=== PATIENT | male | born 1960 | race Caucasian/White ===

== ENCOUNTER 2020-12-31 18:52 | Emergency (ER) | payer OTHER ==
[2020-12-31 20:42] LABS: HEMOGLOBIN 14.9 gm/dl (14.0-17.5); RED BLOOD COUNT 4.96 M/UL (4.20-5.50); WHITE BLOOD COUNT 9.5 K/UL (4.5-11.0)
[2020-12-31 21:10] LABS: BUN/CREATININE RATIO 11 (0-10)
== END 2020-12-31 22:40 | disposition home or self-care (01) ==
LOC: ER1 18:52
PROVIDERS: Preventive Medicine Occupational Medicine
DX: F13.10 Sedative, hypnotic or anxiolytic abuse, uncomplicated (principal); R91.1 Solitary pulmonary nodule; E11.9 Type 2 diabetes mellitus without complications; I25.10 Atherosclerotic heart disease of native coronary artery without angina pectoris
CPT/HCPCS: 36600; 70450; 71045; 80053; 80307; 81001; 82009; 82550; 82553; 82803; 83690; 83874; 84484; 85025; 85652; 86140; 87086; 93005; 99284; G0480

== ENCOUNTER 2021-01-13 09:02 | Emergency (ER) | payer OTHER ==
[~2021-01-13] VITALS: Ht 175.3 cm; Wt 69.9 kg
[2021-01-13 10:13] LABS: HEMOGLOBIN 15.5 gm/dl (14.0-17.5); RED BLOOD COUNT 5.15 M/UL (4.20-5.50); WHITE BLOOD COUNT 9.6 K/UL (4.5-11.0)
[2021-01-13 12:18] LABS: BUN/CREATININE RATIO 10 (0-10)
[2021-01-13] MEDS ORDERED: VISTARIL50 MG PO (14:36)
[2021-01-13] MEDS ORDERED: UNISOM SLEEP AI25 MG PO (14:38)
[2021-01-13] MEDS ORDERED: IBU800 MG PO (14:39)
[2021-01-13] MEDS ORDERED: LEVETIRACETAM500 MG PO (14:39)
[2021-01-13] MEDS ORDERED: TRAMADOL HCL50 MG PO (14:40)
[2021-01-13] MEDS ORDERED: FOLIC ACID1 MG PO (14:41)
[2021-01-13] MEDS ORDERED: OMEPRAZOLE MAGN20 MG PO (14:41)
[2021-01-13] MEDS ORDERED: NAMENDA10 MG PO (14:42)
[2021-01-13] MEDS ORDERED: CRESTOR20 MG PO (14:43)
[2021-01-13] MEDS ORDERED: COZAAR50 MG PO (14:43)
[2021-01-13] MEDS ORDERED: PLAVIX 75 MG TA75 MG PO (14:44)
[2021-01-13] MEDS ORDERED: PROAIR DIGIHAL90 MCG PO (14:45)
[2021-01-13] MEDS ORDERED: VITAMIN D21250 MCG PO (14:46)
[2021-01-13] MEDS ORDERED: PAROXETINE HCL20 MG PO (14:47)
[2021-01-13] MEDS ORDERED: METOPROLOL TART25 MG PO (14:48)
[2021-01-13] MEDS ORDERED: NITROSTAT0.4 MG PO (14:49)
[2021-01-13] MEDS ORDERED: VITAMIN B-1100 M1 PO (14:50)
[2021-01-13] MEDS ORDERED: ASPIRIN EC81 MG PO (14:51)
[2021-01-13] MEDS ORDERED: ADVIL LIQUI-GE200 MG PO (14:52)
[2021-01-13] MEDS ORDERED: ALPRAZOLAM1 MG PO (14:57)
== END 2021-01-13 14:18 | disposition left against medical advice (07) ==
LOC: ER1 09:02 → CDU 12:52
PROVIDERS: Emergency Medicine
DX: I63.9 Cerebral infarction, unspecified (principal); R07.2 Precordial pain; Z20.822 Contact with and (suspected) exposure to COVID-19
CPT/HCPCS: 70450; 71045; 80053; 82550; 82553; 83874; 83880; 84484; 85025; 93005; 99285; U0002